=== PATIENT | female | born 1990 | race African-American/Black ===

== ENCOUNTER 2022-01-22 05:05 | Day surgery (SDC) | payer OTHER ==
[2022-01-21 11:49] VITALS: BMI 34.0
[2022-01-22] MEDS ORDERED: PROPOFOL 40 ML ONE (08:58)
[2022-01-22] MEDS ORDERED: INDOMETHACIN 50 MG CAPSULE PO ONE (10:15)
[2022-01-22] MEDS ORDERED: ONDANSETRON 4 MG/2 ML VIAL IVPUSH PRN (10:45)
[2022-01-22] MEDS ORDERED: LACTATED RINGERS SOLUTION 1,000 ML IV SCH (10:45)
[2022-01-22 12:40] VITALS: RESP 18
[2022-01-22 16:05] VITALS: BP 113/68; PULSE 71; TEMP 97.2
== END 2022-01-22 16:00 | disposition home or self-care (01) ==
LOC: JASU-SURG 05:05
PROVIDERS: ATTEND Obstetrics & Gynecology Maternal & Fetal Medicine
PROC: 0UVC7ZZ Restriction of Cervix, Via Natural or Artificial Opening (ICD-10-PCS; principal; 2022-01-22 09:00)
DX: O00.01 Abdominal pregnancy with intrauterine pregnancy (principal); O34.31 Maternal care for cervical incompetence, first trimester; Z3A.12 12 weeks gestation of pregnancy; N96 Recurrent pregnancy loss
CPT/HCPCS: 94760

== ENCOUNTER 2022-08-02 02:00 | Inpatient (IN) | payer OTHER ==
[2022-08-02 04:15] VITALS: BMI 38.7
[2022-08-02] MEDS: DEXTROSE 5%-LACTATED RINGERS 1,000 ML IV SCH ×2 (04:15→10:00)
[2022-08-02 04:53] LABS: INR 0.95 (0.83-1.09)
[2022-08-02 04:55] LABS: ACTIVATED PTT 28.8 SECONDS (25.2-36.5)
[2022-08-02 04:59] LABS: BASO % 0.4 % (0-2.0); EOS % 0.4 % (0-4.5); HEMATOCRIT 32.4 % (32.4-45.2); HEMOGLOBIN 11.4 GM/dL (10.7-15.3); LYMPH % 19.2 % (8-40); MCH 28.3 pg (25.7-33.7); MCHC 35.1 g/dl (32.0-36.0); MEAN CELL VOLUME 80.6 fl (80-96); MONO % 5.8 % (3.8-10.2); NEUT % 74.2 % (42.8-82.8); PLATELET COUNT 213 10^3/uL (134-434); RBC 4.01 M/mm3 (3.60-5.2); RDW 13.4 % (11.6-15.6); WHITE BLOOD COUNT 9.1 K/mm3 (4.0-10.0)
[2022-08-02 05:27] LABS: BLOOD UREA NITROGEN 4.3 mg/dL (7-18); CREATININE 0.7 mg/dL (0.55-1.3)
[2022-08-02 05:40] LABS: CALCIUM 9.3 mg/dL (8.5-10.1)
[2022-08-02 05:41] LABS: MAGNESIUM 1.7 mg/dL (1.8-2.4)
[2022-08-02] MEDS ORDERED: morphine SULFATE 4 MG/ML VIAL IVPB ONE ×3 (08:50→17:03)
[2022-08-02] MEDS ORDERED: SODIUM CHLORIDE 500 ML IV STA ×3 (08:50→22:46)
[2022-08-02] MEDS ORDERED: morphine SULFATE 4 MG/ML VIAL ONE ×3 (08:56→17:08)
[2022-08-02] MEDS ORDERED: OXYTOCIN 30 UNITS in 0.9% NS 30 UNIT/500 ML INFUS.BAG IVPB ONE (11:59)
[2022-08-02] MEDS: OXYTOCIN 30 UNITS in 0.9% NS 30 UNIT/500 ML INFUS.BAG IVPB SCH (12:00)
[2022-08-02] MEDS ORDERED: morphine CARPU-JECT 8 MG/1 ML DISP.SYRIN IVPB ONE (17:03)
[2022-08-02] MEDS ORDERED: SODIUM CHLORIDE 1,000 ML IV STA (18:09)
[2022-08-02] MEDS ORDERED: FENTANYL/BUPIVACAINE/NS/PF - PCEA - 50 ML DISP.SYRIN EP ONE (20:30)
[2022-08-02] MEDS ORDERED: BUPIVACAINE HCL/PF 0.25% (2.5MG/ML) 10 ML VIAL ONE ×2 (20:45→23:18)
[2022-08-02] MEDS ORDERED: NALOXONE HCL 0.4 MG/ML VIAL IVPUSH PRN (21:18)
[2022-08-02] MEDS ORDERED: FENTANYL/BUPIVACAINE/NS/PF - PCEA - 50 ML DISP.SYRIN EP SCH (21:30)
[2022-08-02] MEDS ORDERED: FENTANYL CITRATE/PF 50 MCG/ML VIAL ONE (23:19)
[2022-08-03] MEDS ORDERED: FENTANYL/BUPIVACAINE/NS/PF - PCEA - 50 ML DISP.SYRIN EP ONE (00:03)
[2022-08-03 05:24] LABS: CORD BASE EXCESS -4.6 mmol/L (0-2); CORD PCO2 40.7 mmHg (30-78); CORD pH 7.33 (7.14-7.44)
[2022-08-03] MEDS ORDERED: BENZOCAINE 28 GM HEMORRHOIDAL OINTMENT TP PRN (05:37)
[2022-08-03] MEDS ORDERED: WITCH HAZEL 50% (TUCKS) 40 PAD/JAR PAD TP PRN (05:37)
[2022-08-03] MEDS ORDERED: ACETAMINOPHEN 325 MG TABLET (FP) PO PRN (05:37)
[2022-08-03] MEDS ORDERED: OXYTOCIN 20 UNITS in 0.9% NS 20 UNIT/1,000 ML INFUS.BAG IV SCH (05:45)
[2022-08-03] MEDS: IBUPROFEN 600 MG TABLET (FP) PO PRN ×4 (07:28→23:05)
[2022-08-03] MEDS ORDERED: IBUPROFEN 600 MG TABLET (FP) PO ONE (07:30)
[2022-08-03] MEDS: PRENATAL VITAMINS W/ FOLIC ACID TABLET (FP) PO SCH (11:08)
[2022-08-03] MEDS: FERROUS SO4 325 MG TABLET (FP) PO SCH ×3 (11:08→18:00)
[2022-08-03] MEDS: DOCUSATE SODIUM 100 MG CAPSULE (FP) PO SCH ×3 (13:49→21:51)
[2022-08-03] MEDS: OXYTOCIN 30 UNITS in 0.9% NS 30 UNIT/500 ML INFUS.BAG IVPB SCH (20:01)
[2022-08-03] MEDS: DEXTROSE 5%-LACTATED RINGERS 1,000 ML IV SCH ×2 (20:02)
[2022-08-04] MEDS: DOCUSATE SODIUM 100 MG CAPSULE (FP) PO SCH ×3 (06:10→22:18)
[2022-08-04 08:57] LABS: BASO % 0.4 % (0-2.0); HEMATOCRIT 26.2 % (32.4-45.2); LYMPH % 17.3 % (8-40); MCH 27.8 pg (25.7-33.7); MCHC 34.4 g/dl (32.0-36.0); MEAN CELL VOLUME 80.8 fl (80-96); MEAN PLT VOLUME 8.8 fl (7.5-11.1); MONO % 6.2 % (3.8-10.2); NEUT % 75.1 % (42.8-82.8); PLATELET COUNT 172 10^3/uL (134-434); RBC 3.24 M/mm3 (3.60-5.2); RDW 13.4 % (11.6-15.6); WHITE BLOOD COUNT 18.9 K/mm3 (4.0-10.0)
[2022-08-04] MEDS: IBUPROFEN 600 MG TABLET (FP) PO PRN ×2 (09:36→17:56)
[2022-08-04] MEDS: PRENATAL VITAMINS W/ FOLIC ACID TABLET (FP) PO SCH (09:38)
[2022-08-04] MEDS: FERROUS SO4 325 MG TABLET (FP) PO SCH ×3 (09:38→17:56)
[2022-08-04 23:37] VITALS: RESP 18
[2022-08-05] MEDS: IBUPROFEN 600 MG TABLET (FP) PO PRN (02:37)
[2022-08-05] MEDS: DOCUSATE SODIUM 100 MG CAPSULE (FP) PO SCH ×2 (06:04→13:24)
[2022-08-05] MEDS: FERROUS SO4 325 MG TABLET (FP) PO SCH ×2 (08:07→12:24)
[2022-08-05 08:13] VITALS: BP 122/80; PULSE 89; TEMP 98
[2022-08-05] MEDS: PRENATAL VITAMINS W/ FOLIC ACID TABLET (FP) PO SCH (10:04)
== END 2022-08-05 15:30 | disposition home or self-care (01) | DRG 560 ==
LOC: JDEL 02:00 → JLDR 03:15 → J3W 08-03 08:00
PROVIDERS: ADMIT Obstetrics & Gynecology Maternal & Fetal Medicine; ATTEND Obstetrics & Gynecology Maternal & Fetal Medicine
PROC: 10907ZC Drainage of Amniotic Fluid, Therapeutic from Products of Conception, Via Natural or Artificial Opening (ICD-10-PCS; 2022-08-02)
PROC: 10E0XZZ Delivery of Products of Conception, External Approach (ICD-10-PCS; principal; 2022-08-03)
PROC: 0KQM0ZZ Repair Perineum Muscle, Open Approach (ICD-10-PCS; 2022-08-03)
DX: O48.0 Post-term pregnancy (principal); O34.33 Maternal care for cervical incompetence, third trimester; O70.1 Second degree perineal laceration during delivery; O99.214 Obesity complicating childbirth; E66.9 Obesity, unspecified; Z3A.40 40 weeks gestation of pregnancy; Z37.0 Single live birth
CPT/HCPCS: 36415; 36600; 80048; 82803; 83735; 85025; 85610; 85730; 86780; 86850; 86900; 86901; 88307-TC; C9803-CS; U0003; U0005